=== PATIENT | female | born 1960 ===

== ENCOUNTER 2023-12-07 06:55 | Day surgery (SDC) | payer BC ==
[2023-12-05 13:16] LABS: Potassium 4.2 mEq/L (3.5-5.1)
[2023-12-07] MEDS ORDERED: propofoL 200 MG/20 ML VIAL IV ONE (07:14)
[2023-12-07] MEDS: Ringers Lactate 1,000 ML IV ONE (07:24)
[2023-12-07 10:22] VITALS: BP 115/69; TEMP 97; O2SAT 98
== END 2023-12-07 09:17 | disposition home or self-care (01) ==
LOC: OR 06:55
PROVIDERS: ATTEND Surgery
PROC: 0DB98ZX Excision of Duodenum, Via Natural or Artificial Opening Endoscopic, Diagnostic (ICD-10-PCS; 2023-12-07)
PROC: 0DB78ZX Excision of Stomach, Pylorus, Via Natural or Artificial Opening Endoscopic, Diagnostic (ICD-10-PCS; 2023-12-07)
PROC: 0DB48ZX Excision of Esophagogastric Junction, Via Natural or Artificial Opening Endoscopic, Diagnostic (ICD-10-PCS; 2023-12-07)
PROC: 0DBK8ZX Excision of Ascending Colon, Via Natural or Artificial Opening Endoscopic, Diagnostic (ICD-10-PCS; principal; 2023-12-07 08:00)
PROC: 0DBM8ZX Excision of Descending Colon, Via Natural or Artificial Opening Endoscopic, Diagnostic (ICD-10-PCS; 2023-12-07 08:00)
DX: Z12.11 Encounter for screening for malignant neoplasm of colon (principal); R10.13 Epigastric pain; K21.9 Gastro-esophageal reflux disease without esophagitis; K57.30 Diverticulosis of large intestine without perforation or abscess without bleeding; K51.90 Ulcerative colitis, unspecified, without complications; K64.8 Other hemorrhoids; K29.50 Unspecified chronic gastritis without bleeding; K44.9 Diaphragmatic hernia without obstruction or gangrene; Z86.010 Personal history of colon polyps
CPT/HCPCS: 80048; 36415; 88312; 88305; 45380; 43239; J2704; J7120; 88304